=== PATIENT | female | born 1950 | race Caucasian/White ===

== ENCOUNTER 2019-09-02 20:43 | Emergency (ER) | payer SELFPAY ==
[~2019-09-02] VITALS: Ht 147.3 cm; Wt 42.0 kg
[2019-09-02 21:03] VITALS: BP 177/95
[2019-09-02] MEDS ORDERED: SULFAMETHOXAZOLE/TRIMETHOPRIM 800/160MG TABLET PO ONE (22:30)
[2019-09-02] MEDS ORDERED: BACITRACIN ZINC OINT UDPKT TOP ONE (22:30)
[2019-09-02] MEDS ORDERED: CEPHALEXIN 250MG CAPSULE PO ONE (22:30)
[2019-09-02] MEDS ORDERED: IBUPROFEN 400MG TABLET PO ONE (22:45)
[2019-09-02 23:13] LABS: CHLORIDE 99 mEq/L (98-107)
[2019-09-02] MEDS ORDERED: TETANUS, DIPHTHERIA, PERTUSSIS VAC/PF 0.5ML (>7YR OLD) IM ONE (23:15)
[2019-09-02] MEDS ORDERED: SODIUM CHLORIDE 0.9% 1,000 ML IV ONE (23:27)
== END 2019-09-03 00:10 | disposition left against medical advice (07) ==
LOC: ER 20:43
DX: S91.135A Puncture wound without foreign body of left lesser toe(s) without damage to nail, initial encounter (principal); L08.9 Local infection of the skin and subcutaneous tissue, unspecified; E11.65 Type 2 diabetes mellitus with hyperglycemia; I10 Essential (primary) hypertension; Z91.14 Patient's other noncompliance with medication regimen; W45.8XXA Other foreign body or object entering through skin, initial encounter; W22.8XXA Striking against or struck by other objects, initial encounter; Y93.89 Activity, other specified; Y92.89 Other specified places as the place of occurrence of the external cause
CPT/HCPCS: 36415; 80048; 82962; 90471; 90715; 99284; J7030